=== PATIENT | male | born 1995 | race Caucasian/White ===

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

== ENCOUNTER 2017-09-07 18:13 | Emergency (ER) | END 2017-09-07 20:05 | disposition home or self-care (01) ==

== ENCOUNTER 2017-09-09 18:24 | Emergency (ER) | END 2017-09-09 19:20 | disposition home or self-care (01) ==